=== PATIENT | female | born 1965 | race Caucasian/White ===

== ENCOUNTER 2017-07-17 09:11 | Day surgery (SDC) | payer OTHER ==
[~2017-07-17 09:11] MED LIST: LIDOCAINE HCL 1% MPF SOL ONE; PROPOFOL 500 MG/50 ML EMU IV ONE
[2017-07-17 11:08] VITALS: TEMP 97.1
[2017-07-17 11:41] VITALS: RESP 20
[2017-07-17 11:51] VITALS: BP 116/74; PULSE 65; O2SAT 97
== END 2017-07-17 12:11 | disposition home or self-care (01) ==
LOC: SURG 09:11
PROVIDERS: ATTEND Internal Medicine Gastroenterology
DX: K21.9 Gastro-esophageal reflux disease without esophagitis (principal); R10.10 Upper abdominal pain, unspecified; R19.7 Diarrhea, unspecified; K44.9 Diaphragmatic hernia without obstruction or gangrene; K31.7 Polyp of stomach and duodenum
CPT/HCPCS: 43239; 99001; J2001; J2704